=== PATIENT | female | born 1945 | race Two or more races ===

== ENCOUNTER 2017-02-14 05:57 | Day surgery (SDC) | payer OTHER, MEDICAID | END 2017-02-14 11:20 | disposition home or self-care (01) | LOC: DS 05:57 | PROVIDERS: ATTEND Ophthalmology | DX: H26.9 Unspecified cataract (principal); E11.9 Type 2 diabetes mellitus without complications; E78.5 Hyperlipidemia, unspecified; M19.90 Unspecified osteoarthritis, unspecified site; Z68.32 Body mass index [BMI] 32.0-32.9, adult; Z79.899 Other long term (current) drug therapy; G89.29 Other chronic pain; J45.909 Unspecified asthma, uncomplicated; I10 Essential (primary) hypertension | CPT/HCPCS: 71010; 94664; J0171; J1580; J3010; J3370; J3471; J3490; J7120; J7321; V2632 ==